=== PATIENT | male | born 1950 | race Caucasian/White ===

== ENCOUNTER → 2016-11-21 | Outpatient (CLI) | payer MEDICARE, OTHER ==
[~2016-11-21] MED LIST: ATOR20TA58 PO; GADOBUTROL 7.5 MMOL/7.5 ML VIAL IV ONE; INSU100V13 SQ; LOSA1TAB16 PO; METF500T4 PO
--- NOTE | 2016-11-23 08:37 | KCIC ---
MRI abdomen INDICATION: 66-year-old male with right renal tumor. TECHNIQUE: MRI of the abdomen without and with 14 mL of gadolinium based contrast. COMPARISON: Previous MRI from 11/11/2015 FINDINGS: No pleural effusion. There is no drop-off signal on out of phase images when compared to in phase in the liver to suggest hepatic steatosis. Spleen measures 17 cm and is moderately enlarged. Intrinsic T1 signal is present within the pancreas. No magnetic duct dilation. Gallbladder surgically absent. CBD within normal limits. No intrahepatic biliary duct dilation. Adrenal glands show no nodularity. Left kidney is surgically absent. Right kidney show no hydronephrosis. Multiple simple cysts in the right kidney. There is a 3.8 x 3.8 cm, previously 4.2 x 3.7 cm partially exophytic lesion within the posterior interpolar region of the right kidney demonstrating high intensity signal on precontrast T1 weighted images/low intensity signal on T2-weighted images. Hemosiderin ring is seen around this lesion. There as no postcontrast enhancement in this lesion. 1.2 cm cyst within anterior aspect of the interpolar right kidney demonstrating high intensity T1 signal , low intensity T2 signal and no enhancement likely hemorrhagic/proteinaceous debris-containing cyst. No new enhancing lesions in the right kidney. No retroperitoneal adenopathy. The portal vein, celiac axis, IVC, SMV, right renal artery and renal veins are patent. IMPRESSION: 1. Postablation changes in the right renal lesion with interval decrease in the size. No evidence of recurrent tumor. 2. Multiple simple and minimally complicated cysts in the right kidney. 3. Stable splenomegaly. Electronically signed by: Pelon Ma DO (11/21/2016 2:51 PM) [id number]
== END | disposition home or self-care (01) ==
LOC: KCIC MRI 10:36
PROVIDERS: ATTEND Specialist
DX: C64.1 Malignant neoplasm of right kidney, except renal pelvis (principal); N28.1 Cyst of kidney, acquired; R16.1 Splenomegaly, not elsewhere classified
CPT/HCPCS: 74183; 82565; A9585

== ENCOUNTER → 2017-12-27 | Outpatient (CLI) | payer MEDICARE, OTHER ==
[~2017-12-27] MED LIST changes: +GADOBUTROL 10 MMOL/10 ML VIAL IV ONE; -GADOBUTROL 7.5 MMOL/7.5 ML VIAL IV ONE; -LOSA1TAB16 PO; +LOSA1TAB19 PO; +METF500T16 PO; -METF500T4 PO
--- NOTE | 2017-12-28 12:20 | KCIC ---
Examination: ABDOMEN WO/W CONTRAST History: Left nephrectomy. Ablation of the right kidney 11 years ago. Right renal abnormality. Comparison/Correlation: MRI of the liver 12/18/2012, MRI of the kidneys without and with contrast 11/11/2015 and 11/21/2016 Findings: Multisequence, multiplanar images of the kidneys were obtained. Following 14 cc gadobutrol administration, axial images of the abdomen were obtained at the level of the kidneys. Left nephrectomy is identified. Left nephrectomy bed is unremarkable. At the posterior aspect of the right renal interpolar region, there is an exophytic complex cystic structure again seen. This is unchanged in size compared to 11/13/2016 measuring up to 3.8 cm diameter. There is central high signal within this structure which is unchanged compared to the previous examination. Small right renal cysts are also present similar to the previous exam. No new masses. The liver and spleen are not fully included for purposes of this exam. The visualized liver and spleen are unremarkable. Pancreas is normal. Right adrenal gland is normal. Nodular appearance of the left adrenal gland is similar to previous. No enlarged upper abdominal retroperitoneal lymph nodes. Impression: No change in the complex right renal cyst at the interpolar region posteriorly. No new masses. Left nephrectomy bed is normal. Electronically signed by: Sadiq Wright MD (12/28/2017 12:16 PM) [id number]
== END | disposition home or self-care (01) ==
LOC: KCIC MRI 08:18
PROVIDERS: ATTEND Specialist
DX: N28.1 Cyst of kidney, acquired (principal); Z85.528 Personal history of other malignant neoplasm of kidney
CPT/HCPCS: 74183; 82565; A9585

== ENCOUNTER → 2018-12-19 | Outpatient (CLI) | payer MEDICARE, OTHER ==
[~2018-12-19] MED LIST changes: +FURO-68 PO; -GADOBUTROL 10 MMOL/10 ML VIAL IV ONE; +GADOTERATE 7.5 MMOL/15ML VIAL. IVP ONE
--- NOTE | 2018-12-19 17:38 | KCIC ---
MRI abdomen with and without contrast: Clinical indications: Left nephrectomy. Ablation of the right kidney many years ago. Right renal abnormality. Follow-up study. Technique: T1 and T2 weighted MRI sequences of the abdomen focusing on the kidneys was performed in the axial and coronal planes. In phase and out of phase MRI sequences were performed as well. After IV infusion of 28 cc of Dotarem, postcontrast T1-weighted MRI sequences of both kidneys were performed. COMPARISON: December 27, 2017. Findings: What is visualized of the liver is unremarkable The spleen is mildly enlarged measuring 14.7 cm in length. The gallbladder is surgically absent. Common bile duct is mildly dilated measuring up to 8 mm. This may be secondary to the reservoir effect after cholecystectomy. No adrenal mass is evident. Left kidney is surgically absent. Multiple nonenhancing cysts of the right kidney are seen. There is a complex cortical lesion of the posterior lateral aspect of the mid to lower portion of the right kidney which measures 42 mm in greatest vertical dimension. This is unchanged from the prior study when similar retrospective measurements are made. In today's study, the greatest AP and transverse dimensions are 40 mm and 39 mm respectively. This is also unchanged. No focal aneurysmal dilatation of the abdominal aorta is seen. No enlarged abdominal lymphadenopathy is seen. No ascites is seen.. IMPRESSION: No change in size of complex lesion of the right kidney. This may be secondary to ablation therapy of a right renal neoplasm. Multiple small right renal cysts. No new right renal lesion is evident. Stable mild splenomegaly. Electronically signed by: Hernando Fish MD (12/19/2018 5:35 PM) [id number]
== END | disposition home or self-care (01) ==
LOC: KCIC MRI 12:55
PROVIDERS: ATTEND Internal Medicine Geriatric Medicine
DX: C64.1 Malignant neoplasm of right kidney, except renal pelvis (principal); N28.1 Cyst of kidney, acquired; R16.1 Splenomegaly, not elsewhere classified; N28.9 Disorder of kidney and ureter, unspecified; I10 Essential (primary) hypertension; Z90.89 Acquired absence of other organs; Z90.49 Acquired absence of other specified parts of digestive tract; Z88.6 Allergy status to analgesic agent
CPT/HCPCS: 74183; A9575

== ENCOUNTER → 2020-01-07 | Outpatient (CLI) | payer MEDICARE, OTHER ==
--- NOTE | 2020-01-07 14:26 | KCIC ---
Examination: ABDOMEN WO/W CONTRAST History: Reason: KIDNEY CANCER , Left kidney removed. / History: Annual F/U for right renal mass. 28cc Clariscan. Comparison/Correlation: 12/19/2018 MRI abdomen without and with contrast Findings: Multisequence axial and coronal images of the kidneys were obtained. Following intravenous gadolinium contrast, additional imaging was performed. Cholecystectomy noted. Slight prominence of the common bile duct is similar to the prior exam. Portal venous opacification with contrast is visualized. Visualized spleen unremarkable. Pancreas is unremarkable. Right adrenal gland is normal. 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 Left nephrectomy bed is unremarkable. Multiple right renal lesions are present similar to the previous exam. Largest of these of the inferior pole posteriorly measuring up to 4 cm diameter. It has remained stable. High signal intensity centrally within it on short TR images may represent hemorrhagic or proteinaceous components but this is stable. No right hydronephrosis. No enlarged upper abdominal lymph nodes. Impression: No suspicious new right renal lesion or significant change. Stable complex right renal lower pole dominant structure in particular is noted. Left nephrectomy bed is unremarkable. Electronically signed by: Sadiq Wright MD (01/07/2020 2:23 PM) [facility]
== END ==
LOC: KCIC MRI 09:09
PROVIDERS: ATTEND Specialist
DX: C64.1 Malignant neoplasm of right kidney, except renal pelvis (principal); N28.9 Disorder of kidney and ureter, unspecified; Z90.49 Acquired absence of other specified parts of digestive tract; Z90.5 Acquired absence of kidney
CPT/HCPCS: 74183; 82565; A9575